=== PATIENT | female | born 1960 | race African-American/Black ===

== ENCOUNTER 2022-06-01 15:46 | Outpatient (CLI) | payer BC | END 2022-06-01 15:47 | disposition home or self-care (01) | LOC: BICRAD 15:46 | PROVIDERS: ATTEND Family Medicine | DX: M25.531 Pain in right wrist (principal) ==

== ENCOUNTER 2024-07-31 08:11 | Outpatient (CLI) | payer MEDICARE, BC | END 2024-07-31 08:12 | disposition home or self-care (01) | LOC: BICMAMMO 08:11 | PROVIDERS: ATTEND Physician Assistant | DX: N63.20 Unspecified lump in the left breast, unspecified quadrant (principal) | CPT/HCPCS: 76642; 77066; G0279 ==